=== PATIENT | female | born 1945 | race Caucasian/White ===

== ENCOUNTER → 2024-11-19 | Outpatient (CLI) | payer MEDICARE | LOC: M EKG 14:37 | PROVIDERS: ATTEND Internal Medicine Cardiovascular Disease | DX: R55 Syncope and collapse (principal); I48.0 Paroxysmal atrial fibrillation ==

== ENCOUNTER → 2025-01-23 | Outpatient (CLI) | payer MEDICARE | LOC: M CARPUL 14:04 | PROVIDERS: ATTEND Internal Medicine Cardiovascular Disease | DX: R06.02 Shortness of breath (principal); I51.7 Cardiomegaly; I48.0 Paroxysmal atrial fibrillation ==